=== PATIENT | female | born 1945 | race Caucasian/White ===

== ENCOUNTER 2021-03-22 20:30 | Emergency (ER) | payer MEDICARE ==
[~2021-03-22 20:30] MED LIST: NORCO 5-325 TA1 EACH PO; Voltaren Gel 1 % TOP
[2021-03-22 21:25] LABS: RED BLOOD COUNT 4.29 M/UL (4.00-5.10); WHITE BLOOD COUNT 8.3 K/UL (4.5-11.0)
[2021-03-22 21:31] LABS: BUN/CREATININE RATIO 17 (0-10)
[2021-03-23] MEDS ORDERED: PERCOCET 5/325 T1 EA PO (00:50)
== END 2021-03-23 01:00 | disposition home or self-care (01) ==
LOC: ER1 20:30
PROVIDERS: Family Medicine
DX: R41.82 Altered mental status, unspecified (principal); Z85.41 Personal history of malignant neoplasm of cervix uteri
CPT/HCPCS: 36600; 51701; 70450; 71045; 80053; 80307; 82803; 85025; 93005; 99285; G0480; J7030